=== PATIENT | female | born 1995 | race Caucasian/White ===

== ENCOUNTER 2017-08-17 04:50 | Emergency (ER) | payer OTHER ==
[~2017-08-17] VITALS: Ht 147.3 cm; Wt 47.6 kg
[2017-08-17 04:58] VITALS: BP 104/57
--- NOTE | 2017-08-17 05:01 | NUR ---
PT. AMBULATED TO ER BED 2
--- NOTE | 2017-08-17 05:10 | NUR ---
22Y/F PATIENT PRESENTS TO ED WITH C/O LLQ ABDOMINAL PAIN WITH FEELING NAUSEATED X 3 DAYS.NO MED HX.; SKIN IS PINK/WARM/DRY; AAOX4 WITH EVEN AND STEADY GAIT; LUNGS CLEAR BL; HR EVEN AND REGULAR; PT DENIES ANY FEVER, CP, SOB, OR COUGH AT THIS TIME; PATIENT STATES PAIN OF 8/10 AT THIS TIME; VSS; PATIENT POSITIONED FOR COMFORT; HOB ELEVATED; BEDRAILS UP X2; BED DOWN. ER MD MADE AWARE OF PT STATUS.
[2017-08-17] MEDS ORDERED: KETOROLAC 30 MG/ML VIAL IM ONE (05:25)
[2017-08-17] MEDS ORDERED: DICYCLOMINE HCL LIQUID 20 MG, ALUMINUM HYD/MAG/SIMETHICONE 30 ML, LIDOCAINE VISCOUS 2% ... PO ONE ×3 (05:25)
--- NOTE | 2017-08-17 05:45 | NUR ---
BLOOD DRAWN, SENT TO LAB
[2017-08-17] MEDS ORDERED: ALUMINUM HYD/MAG/SIMETHICONE 30 ML UDC ONE (05:47)
[2017-08-17 05:57] LABS: BASOPHILS % (AUTO) 0.3 % (0.0-2.0); EOSINOPHILS % (AUTO) 0.2 % (0.0-4.0); HEMATOCRIT 40.3 % (36-48); HEMOGLOBIN 13.3 g/dL (12.0-16.0); LYMPHOCYTES # (AUTO) 1.3 K/uL (2.5-16.5); LYMPHOCYTES % (AUTO) 21.7 % (20.5-51.1); MEAN CORPUSCULAR HEMOGLOBIN 28 pg (27-31); MEAN CORPUSCULAR HGB CONC 33 g/dL (33-37); MEAN CORPUSCULAR VOLUME 85.2 fL (80-94); MONOCYTES # (AUTO) 0.3 K/uL (0.8-1.0); MONOCYTES % (AUTO) 4.8 % (1.7-9.3); NEUTROPHILS # (AUTO) 4.5 K/uL (1.8-7.7); PLATELET COUNT (AUTO) 247 K/uL (140-450); RED BLOOD CELL COUNT(AUTO) 4.73 MIL/uL (4.20-5.40); RED CELL DISTRIBUTION WIDTH 12.9 % (11.6-13.7); WHITE BLOOD COUNT (AUTO) 6.1 K/uL (4.8-10.8)
[2017-08-17 06:09] LABS: ANION GAP 14.8 (8-16); CARBON DIOXIDE 25.1 mmol/L (21-32); CREATININE 0.7 mg/dL (0.6-1.3); POTASSIUM 3.9 mmol/L (3.5-5.1)
[2017-08-17 06:15] LABS: ALBUMIN 4.2 g/dL (3.4-5.0); TOTAL BILIRUBIN 0.4 mg/dL (0.0-1.0)
[2017-08-17] MEDS ORDERED: fentaNYL 0.05 MG/ML VIAL IVP ONE (06:25)
[2017-08-17] MEDS ORDERED: NACL 0.9% 1,000 ML IV ONE (06:25)
[2017-08-17] MEDS ORDERED: ONDANSETRON 4 MG/2 ML VIAL IVP ONE (06:25)
[2017-08-17 06:30] VITALS: BP 104/57
--- NOTE | 2017-08-17 06:30 | NUR ---
PATIENT ELOPED FROM FACILITY. DISCHARGE INSTRUCTIONS NOT GIVEN TO PATIENT. DR. GARCÍA. MIYA BUSH NOTIFIED.
== END 2017-08-17 06:30 | disposition left against medical advice (07) ==
LOC: MED 04:50
DX: R10.12 Left upper quadrant pain (principal); R11.0 Nausea; J45.909 Unspecified asthma, uncomplicated
CPT/HCPCS: 36415; 80053; 81002; 81025; 83690; 85025; 96372; 99284; J1885; J7030; J2405; J3010

== ENCOUNTER 2017-08-17 08:25 | Emergency (ER) | payer OTHER ==
[~2017-08-17] VITALS: Ht 147.3 cm; Wt 47.6 kg
[2017-08-17 08:40] VITALS: BP 106/57
--- NOTE | 2017-08-17 08:45 | NUR ---
TO ER CHAIR A
--- NOTE | 2017-08-17 09:05 | NUR ---
22/ PRESENT TO ER C/O LEFT FLANK PAIN WITH NAUSEA FOR 3 DAYS , SEEN BY SPEEDY AT 0600HOURS WITH LAB WORKS ORDERED. PT HAS NAUSEA BUT DENIES VOMITING, DIARRHEA OR CONSTIPATION. PT DENIES ANY URINARY PROBLEMS AT THIS TIME. ERMD NOTIFIED OF PATIENT STATUS.
[2017-08-17 09:16] VITALS: BP 106/57
--- NOTE | 2017-08-17 09:17 | NUR ---
Rosemary obse in EDM - 08/17/17 at 0928 by KARY PATIENT ELOPED FROM FACILITY. DISCHARGE INSTRUCTIONS NOT GIVEN TO PATIENT. DR. BLANCO NOTIFIED.
--- NOTE | 2017-08-17 09:28 | NUR ---
PATIENT LEFT WITHOUT BEING SEEN BY DR. BLANCO. NO FURTHER CARE PROVIDED FOR PATIENT.
== END 2017-08-17 09:28 | disposition left against medical advice (07) ==
LOC: MED 08:25
DX: Z53.21 Procedure and treatment not carried out due to patient leaving prior to being seen by health care provider (principal)